=== PATIENT | female | born 1955 | race Hispanic/Latino ===

== ENCOUNTER 2019-04-06 18:43 | Emergency (ER) | payer SELFPAY ==
[~2019-04-06] VITALS: Ht 154.9 cm; Wt 64.4 kg
[2019-04-06] MEDS ORDERED: CLONIDINE HCL 0.2 MG TAB PO ONE (19:45)
[2019-04-06] MEDS ORDERED: CLONIDINE HCL 0.2 MG TAB ONE (20:08)
--- NOTE | 2019-04-06 20:11 | Diagnostic Imaging Report ---
Exams: Head, maxillofacial and cervical spine CTs without IV contrast History: Trauma, fall Comparison studies:None Technique: Axial images were obtained from the brain, face and cervical spine. Coronal and sagittal reconstructions obtained from the axial data. Dose modulation, iterative reconstruction, and/or weight based adjustment of the mA/kV was utilized to reduce the radiation dose to as low as reasonably achievable. Intravenous contrast: None Findings: Head CT: Scalp: Last inferior frontal-supraorbital soft tissue hematoma and abrasion extend to the preseptal periorbital soft tissues. No retained hyperdense foreign body. Bones: No calvarial fracture. No blastic or lytic lesion. Brain sulci: Appropriate for age. Ventricles: Normal in size and configuration. No hydrocephalus. Parenchyma: A subtle hypodensity in the right frontal hypodense R subcortical white matter is nonspecific but may be chronic microvascular ischemic changes. Sellar/suprasellar region: No abnormalities Craniocervical junction: The foramen magnum is patent. No Chiari one malformation. Maxillofacial CT: Soft tissues: Left supraorbital and preseptal periorbital soft tissue hematoma and abrasion. No retained hyperdense foreign body. Small focal gas beneath a left dilated otherwise, no subcutaneous emphysema. Mild edema extends inferiorly into the regional left perimandibular, premaxillary and prezygomatic soft tissues. Mild right periorbital soft tissue swelling. Bones: Mildly comminuted and depressed left lamina appreciable (medial orbital wall) fracture. Orbits: Globes and lenses appear grossly intact. No retrobulbar hematoma or extraocular muscle herniation. Paranasal sinuses: Small hemorrhage and focal herniation of left extra coronal fat the left lamina appreciable defect. Mild mucosal thickening in the right maxillary sinus, left sphenoid sinus and partially opacified posterior right ethmoid air cell. Remaining sinuses are clear. Dentition: Dental caries with tooth #18 periapical lucency. Cervical spine CT: Fractures: None. Soft tissue injuries: No gross acute abnormalities. Atlantoaxial articulation: Intact. Alignment: Normal lordosis. No subluxations. Cervicomedullary junction: No abnormalities. Patent foramen magnum. Vertebrae: No fractures, infection or neoplasm. Degenerative changes: Disc degeneration, mild at C3-C4, moderate from C4 to C7 and mild at C7-T1. Disc osteophyte complexes from C4 to C7 indent the thecal sac and result in only mild canal stenosis. Multilevel facet arthrosis with fused facets on the left at C2-C3 and on the right at C3-C4. Multilevel uncovertebral and facet arthrosis result in multilevel foraminal stenosis which is mild right at C3-C4, mild bilaterally at C4-C5, mild bilaterally at C5-C6 and mild to moderate left and mild right at C6-C7. IMPRESSION: Head CT: 1. Left supraorbital/periorbital soft tissue hematoma with associated acute left lamina appreciable fracture. No retained hyperdense foreign body. 2. No acute intracranial abnormalities. 3. Mild chronic microvascular ischemic changes. Facial CT: 1. Left supraorbital/periorbital soft tissue hematoma with superimposed mild left facial and right periorbital soft tissue swelling. No retained hyperdense foreign body. 2. Acute minimally displaced left lamina papyracea fracture. No associated extraocular muscle herniation, retrobulbar hematoma or gross evidence of globe injury. Cervical spine CT: 1. No cervical spine fracture or subluxation. 2. Multilevel degenerative changes as described. 3. Ligament, spinal cord and or vascular abnormalities cannot be excluded on the basis of this examination. Signed by: Dr. Thaddeus Coleman M.D. on 04/06/2019 8:08 PM
[2019-04-06 21:56] VITALS: BP 119/70
--- OUTSIDE RECORDS SUMMARY | 2019-04-14 11:32 | XMS REPORT ---
Author Author [facility] Address Unknown Phone Unavailable Care Team Providers Care Refrigeration Person Name Role Phone NAINA SAÚL Unavailable Unavailable Problems This patient has no known problems. Allergies, Adverse Reactions, Alerts This patient has no known allergies or adverse reactions. Medications This patient has no known medications. Results Test Description Test Time Test Comments Text Results Atomic Results Result Comments CT MAXIO FAC/PARANAS WO 2019-04-06 19:39:00 [facility] [address] [address] Patient Name: AFUA REA MR #: [id number] : 1955 Age/Sex: 63/F Req #: [id number] Adm Physician: Ordered by: SAÚL CHEW DO Report #: [id number] Location: ER Room/Bed: Procedure: [id number] CT/CT MAXIO FAC/PARANAS WO Exam Date: 04/06/19 Exam Time: 1900 REPORT STATUS: Signed Exams: Head, maxillofacial and cervical spine CTs with out IV contrast History: Trauma, fall Comparison studies:None Technique: Axial images were obtained from the brain, face and cervical spine. Coronal and sagittal reconstructions obtained from the axial data. Dose modulation, iterative reconstruction, and/or weight based adjustment of the mA/kV was utilized to reduce the radiation dose to as low as reasonably achievable. Intravenous contrast: None Findings: Head CT: Scalp: Last inferior frontal-supraorbital soft tissue hematoma and abrasion extend to the preseptal periorbital soft tissues. No retained hyperdense foreign body. Bones: No calvarial fracture. No blastic or lytic lesion. Brain sulci: Appropriate for age. Ventricles: Normal in size and configuration. No hydrocephalus. Parenchyma: A subtle hypodensity in the right frontal hypodense R subcortical white matter is nonspecific but may be chronic microvascular ischemic changes. Sellar/suprasellar region: No abnormalities Craniocervical junction: The foramen magnum is patent. No Chiari one malformation. Maxillofacial CT: Soft tissues: Left supraorbital and preseptal periorbital soft tissue hematoma and abrasion. No retained hyperdense foreign body. Small focal gas beneath a left dilated otherwise, no subcutaneous emphysema. Mild edema extends inferiorly into the regional left perimandibular, premaxillary and prezygomatic soft tissues. Mild right periorbital soft tissue swelling. Bones: Mildly comminuted and depressed left lamina appreciable (medial orbital wall) fracture. Orbits: Globes and lenses appear grossly intact. No retrobulbar hematoma or extraocular muscle herniation. Paranasal sinuses: Small hemorrhage and focal herniation of left extra coronal fat the left lamina appreciable defect. Mild mucosal thickening in the right maxillary sinus, left sphenoid sinus and partially opacified posterior right ethmoid air cell. Remaining sinuses are clear. Dentition: Dental caries with tooth #18 periapical lucency. Cervical spine CT: Fractures: None. Soft tissue injuries: No gross acute abnormalities. Atlantoaxial articulation: Intact. Alignment: Normal lordosis. No subluxations. Cervicomedullary junction: No abnormalities. Patent foramen magnum. Vertebrae: No fractures, infection or neoplasm. Degenerative changes: Disc degeneration, mild at C3-C4, moderate from C4 to C7 and mild at C7-T1. Disc osteophyte complexes from C4 to C7 indent the thecal sac and result in only mild canal stenosis. Multilevel facet arthrosis with fused facets on the left at C2-C3 and on the right at C3-C4. Multilevel uncovertebral and facet arthrosis result in multilevel foraminal stenosis which is mild right at C3-C4, mild bilaterally at C4-C5, mild bilaterally at C5-C6 and mild to moderate left and mild right at C6-C7. IMPRESSION: Head CT: 1. Left supraorbital/periorbital soft tissue hematoma with associated acute left lamina appreciable fracture. No retained hyperdense foreign body. 2. No acute intracranial abnormalities. 3. Mild chronic microvascular ischemic changes. Facial CT: 1. Left supraor bital/periorbital soft tissue hematoma with superimposed mild left facial and right periorbital soft tissue swelling. No retained hyperdense foreign body. 2. Acute minimally displaced left lamina papyracea fracture. No associated extraocular muscle herniation, retrobulbar hematoma or gross evidence of globe injury. Cervical spine CT: 1. No cervical spine fracture or subluxation. 2. Multilevel degenerative changes as described. 3. Ligament, spinal cord and or vascular abnormalities cannot be excluded on the basis of this examination. Signed by: Dr. Varinder Coleman M.D. on 04/06/2019 8:08 PM Dictated By: VARINDER COLEMAN MD 07 Transcribed By: MEL on 04/06/192007 COPY TO: SAÚL CHEW DO CT CERVICAL SPINE WO 2019-04-06 19:39:00 [address] [address] Patient Name: AFUA REA MR #: [id number] : 1955 Age/Sex: 63/F Req #: [id number] Adm Physician: Ordered by: SAÚL CHEW DO Report #: [id number] Location: ER Room/Bed: Procedure: [id number] CT/CT CERVICAL SPINE WO Exam Date: 04/06/19 Exam Time: 1900 REPORT STATUS: Signed Exams: Head, maxillofacial and cervical spine CTs without IV contrast History: Trauma, fall Comparison studies:None Technique: Axial images were obtained from the brain, face and cervical spine. Coronal and sagittal reconstructions obtained from the axial data. Dose modulation, iterative reconstruction, and/or weight based adjustment of the mA/kV was utilized to reduce the radiation dose to as low as reasonably achievable. Intravenous contrast: None Findings: Head CT: Scalp: Last inferior frontal-supraorbital soft tissue hematoma and abrasion extend to the preseptal periorbital soft tissues. No retained hyperdense fo reign body. Bones: No calvarial fracture. No blastic or lytic lesion. Brain sulci: Appropriate for age. Ventricles: Normal in size and configuration. No hydrocephalus. Parenchyma: A subtle hypodensity in the right frontal hypodense R subcortical white matter is nonspecific but may be chronic microvascular ischemic changes. Sellar/suprasellar region: No abnormalities Craniocervical junction: The foramen magnum is patent. No Chiari one malformation. Maxillofacial CT: Soft tissues: Left supraorbital and preseptal periorbital soft tissue hematoma and abrasion. No retained hyperdense foreign body. Small focal gas beneath a left dilated otherwise, no subcutaneous emphysema. Mild edema extends inferiorly into the regional left perimandibular, premaxillary and prezygomatic soft tissues. Mild right periorbital soft tissue swelling. Bones: Mildly comminuted and depressed left lamina appreciable (medial orbital wall) fracture. Orbits: Globes and lenses appear grossly intact. No retrobulbar hematoma or extraocular muscle herniation. Paranasal sinuses: Small hemorrhage and focal herniation of left extra coronal fat the left lamina appreciable defect. Mild mucosal thickening in the right maxillary sinus, left sphenoid sinus and partially opacified posterior right ethmoid air cell. Remaining sinuses are clear. Dentition: Dental caries with tooth #18 periapical lucency. Cervical spine CT: Fractures: None. Soft tissue injuries: No gross acute abnormalities. Atlantoaxial articulation: Intact. Alignment: Normal lordosis. No subluxations. Cervicomedullary junction: No abnormalities. Patent foramen magnum. Vertebrae: No fractures, infection or neoplasm. Degenerative changes: Disc degeneration, mild at C3-C4, moderate from C4 to C7 and mild at C7-T1. Disc osteophyte complexes from C4 to C7 indent the thecal sac and result in only mild canal stenosis. Multilevel facet arthrosis with fused facets on the left at C2-C3 and on the right at C3-C4. Multilevel uncovertebral and facet arthrosis result in multilevel foraminal stenosis which is mild right at C3-C4, mild bilaterally at C4-C5, mild bilaterally at C5-C6 and mild to moderate left and mild right at C6-C7. IMPRESSION: Head CT: 1. Left supraorbital/periorbital soft tissue hematoma with associated acute left lamina appreciable fracture. No retained hyperdense foreign body. 2. No acute intracranial abnormalities. 3. Mild chronic microvascular ischemic changes. Facial CT: 1. Left supraorbit al/periorbital soft tissue hematoma with superimposed mild left facial and right periorbital soft tissue swelling. No retained hyperdense foreign body. 2. Acute minimally displaced left lamina papyracea fracture. No associated extraocular muscle herniation, retrobulbar hematoma or gross evidence of globe injury. Cervical spine CT: 1. No cervical spine fracture or subluxation. 2. Multilevel degenerative changes as described. 3. Ligament, spinal cord and or vascular abnormalities cannot be excluded on the basis of this examination. Signed by: Dr. Varinder Coleman M.D. on 04/06/2019 8:08 PM Dictated By: VARINDER COLEMAN MD 07 Transcribed By: MEL on 04/06/192007 COPY TO: SAÚL CHEW DO CT BRAIN WO 2019-04-06 19:39:00 [address] [place] [address] Patient Name: AFUA REA MR #: [id number] : 1955 Age/Sex: 63/F Req #: [id number] Adm Physician: Ordered by: SAÚL CHEW DO Report #: [id number] Location: ER Room/Bed: Procedure: [id number] CT/CT BRAIN WO Exam Date: 04/06/19 Exam Time: 1900 REPORT STATUS: Signed Exams: Head, maxillofacial and cervical spine CTs without IV contrast History: Trauma, fall Comparison studies:None Technique: Axial images were obtained from the brain, face and cervical spine. Coronal and sagittal reconstructions obtained from the axial data. Dose modulation, iterative reconstruction, and/or weight based adjustment of the mA/kV was utilized to reduce the radiation dose to as low as reasonably achievable. Intravenous contrast: None Findings: Head CT: Scalp: Last inferior frontal-supraorbital soft tissue hematoma and abrasion extend to the preseptal periorbital soft tissues. No retained hyperdense foreign body. Bones: No calvarial fracture. No blastic or lytic lesion. Brain sulci: Appropriate for age. Ventricles: Normal in size and configuration. No hydrocephalus. Parenchyma: A subtle hypodensity in the right frontal hypodense R subcortical white matter is nonspecific but may be chronic microvascular ischemic changes. Sellar/suprasellar region: No abnormalities Craniocervical junction: The foramen magnum is patent. No Chiari one malformation. Maxillofacial CT: Soft tissues: Left supraorbital and preseptal periorbital soft tissue hematoma and abrasion. No retained hyperdense foreign body. Small focal gas beneath a left dilated otherwise, no subcutaneous emphysema. Mild edema extends inferiorly into the regional left perimandibular, premaxillary and prezygomatic soft tissues. Mild right periorbital soft tissue swelling. Bones: Mildly comminuted and depressed left lamina appreciable (medial orbital wall) fracture. Orbits: Globes and lenses appear grossly intact. No retrobulbar hematoma or extraocular muscle herniation. Paranasal sinuses: Small hemorrhage and focal herniation of left extra coronal fat the left lamina appreciable defect. Mild mucosal thickening in the right maxillary sinus, left sphenoid sinus and partially opacified posterior right ethmoid air cell. Remaining sinuses are clear. Dentition: Dental caries with tooth #18 periapical lucency. Cervical spine CT: Fractures: None. Soft tissue injuries: No gross acute abnormalities. Atlantoaxial articulation: Intact. Alignment: Normal lordosis. No subluxations. Cervicomedullary junction: No abnormalities. Patent foramen magnum. Vertebrae: No fractures, infection or neoplasm. Degenerative changes: Disc degeneration, mild at C3-C4, moderate from C4 to C7 and mild at C7-T1. Disc osteophyte complexes from C4 to C7 indent the thecal sac and result in only mild canal stenosis. Multilevel facet arthrosis with fused facets on the left at C2-C3 and on the right at C3-C4. Multilevel uncovertebral and facet arthrosis result in multilevel foraminal stenosis which is mild right at C3-C4, mild bilaterally at C4-C5, mild bilaterally at C5-C6 and mild to moderate left and mild right at C6-C7. IMPRESSION: Head CT: 1. Left supraorbital/periorbital soft tissue hematoma with associated acute left lamina appreciable fracture. No retained hyperdense foreign body. 2. No acute intracranial abnormalities. 3. Mild chronic microvascular ischemic changes. Facial CT: 1. Left supraorbital/perior bital soft tissue hematoma with superimposed mild left facial and right periorbital soft tissue swelling. No retained hyperdense foreign body. 2. Acute minimally displaced left lamina papyracea fracture. No associated extraocular muscle herniation, retrobulbar hematoma or gross evidence of globe injury. Cervical spine CT: 1. No cervical spine fracture or subluxation. 2. Multilevel degenerative changes as described. 3. Ligament, spinal cord and or vascular abnormalities cannot be excluded on the basis of this examination. Signed by: Dr. Varinder Coleman M.D. on 04/06/2019 8:08 PM Dictated By: VARINDER COLEMAN MD 07 Transcribed By: MEL on 04/06/192007 COPY TO: SAÚL CHEW DO
== END 2019-04-06 22:17 | disposition home or self-care (01) ==
LOC: ER 18:43
DX: S00.83XA Contusion of other part of head, initial encounter (principal); S02.80XA Fracture of other specified skull and facial bones, unspecified side, initial encounter for closed fracture; S00.12XA Contusion of left eyelid and periocular area, initial encounter; S00.11XA Contusion of right eyelid and periocular area, initial encounter; W01.0XXA Fall on same level from slipping, tripping and stumbling without subsequent striking against object, initial encounter; Y92.008 Other place in unspecified non-institutional (private) residence as the place of occurrence of the external cause; I10 Essential (primary) hypertension
CPT/HCPCS: 70450; 70486; 72125; 99283

== ENCOUNTER 2022-05-09 16:09 | Emergency (ER) | payer MEDICARE ==
[~2022-05-09] VITALS: Ht 154.9 cm; Wt 64.4 kg
[2022-05-09] MEDS ORDERED: SODIUM CHLORIDE 0.9% 1000ML 1,000 ML IV STA (16:19)
[2022-05-09] MEDS ORDERED: DICYCLOMINE HCL 20 MG/2 ML VIAL IM ONE (16:30)
[2022-05-09] MEDS ORDERED: ONDANSETRON HCL INJ 2MG/ML 2ML 2 MG/ML VIAL IV PRN (16:30)
[2022-05-09 16:43] LABS: BASOPHILS % 0.6 % (0.0-1.0); EOSINOPHILS % 0.3 % (0.0-6.0); HEMOGLOBIN 12.1 g/dL (12.0-16.0); LYMPHOCYTES # (AUTO) 1.4 (1.0-3.2); LYMPHOCYTES % 39.5 % (18.0-39.1); MEAN CORPUSCULAR HEMOGLOBIN 25.6 pg (28-32); MEAN CORPUSCULAR HGB CONC 30.3 g/dL (31-35); MEAN CORPUSCULAR VOLUME 84.6 fL (81-99); MONOCYTES # (AUTO) 0.3 (0.2-0.8); MONOCYTES % 8.4 % (4.4-11.3); NEUTROPHILS # (AUTO) 1.8 (2.1-6.9); NEUTROPHILS % 50.9 % (38.7-80.0); PLATELET COUNT 73 x10e3/uL (140-360); RED BLOOD COUNT 4.73 x10e6/uL (3.6-5.1); RED CELL DISTRIBUTION WIDTH 18.2 % (11.7-14.4)
[2022-05-09 16:47] LABS: CLARITY,URINE HAZY (CLEAR); COLOR,URINE YELLOW (YELLOW)
[2022-05-09 16:48] LABS: KETONES,URINE NEGATIVE (NEGATIVE); LEUKOCYTE ESTERASE ,URINE TRACE (NEGATIVE); NITRITE,URINE NEGATIVE (NEGATIVE); PROTEIN,URINE DIPSTICK NEGATIVE (NEGATIVE); URINE UROBILINOGEN 0.2 mg/dL (0.2 - 1)
[2022-05-09 16:49] LABS: BACTERIA,URINE FEW /HPF; EPITHELIAL CELLS,URINE FEW /LPF; RBC,URINE 0-5 /HPF (0-5); WBC,URINE (MAN) 0-5 /HPF (0-5)
[2022-05-09] MEDS ORDERED: KETOROLAC TROMETHAMINE 30 MG/ML VIAL IV ONE (17:00)
[2022-05-09 17:02] LABS: ALBUMIN 3.8 g/dL (3.5-5.0); ALBUMIN/GLOBULIN RATIO 0.8 (0.8-2.0); ANION GAP 15.5 mmol/L (8-16); CREATININE, SERUM 0.68 mg/dL (0.57-1.11); POTASSIUM 3.5 mmol/L (3.5-5.1)
[2022-05-09] MEDS ORDERED: IOPAMIDOL 370 MG/ML 100 ML INFUS..BTL INJ ONE (17:34)
[2022-05-09] MEDS ORDERED: AMLODIPINE BESY10 MG PO (17:35)
[2022-05-09 17:44] LABS: PLATELET ESTIMATE SLIGHTLY DECREASED; PLATELET MORPHOLOGY COMMENT NORMAL
[2022-05-09] MEDS ORDERED: NAPROXEN250 MG PO (17:54)
[2022-05-10] MEDS ORDERED: AMLODIPINE BESYLATE 10 MG TAB PO SCH (09:00)
== END 2022-05-09 18:33 | disposition home or self-care (01) ==
LOC: ER 16:12
DX: R10.33 Periumbilical pain (principal); I10 Essential (primary) hypertension; Z87.42 Personal history of other diseases of the female genital tract
CPT/HCPCS: 36415; 74177; 80053; 81001; 83690; 84484; 85025; 99284; J0500; J1885; J2405; J7030; Q9967

== ENCOUNTER 2022-10-18 14:35 | Emergency (ER) | payer MEDICARE, OTHER ==
[~2022-10-18] VITALS: Ht 154.9 cm; Wt 64.4 kg
[2022-10-18 14:35] VITALS: O2SAT 99
[~2022-10-18 14:35] MED LIST: AMLODIPINE BESY10 MG PO; NAPROXEN250 MG PO
[2022-10-18] MEDS ORDERED: AMOX TR-K CLV1 EAC2 PO (14:39)
[2022-10-18] MEDS ORDERED: NAPROXEN250 MG PO (14:39)
== END 2022-10-18 14:45 | disposition home or self-care (01) ==
LOC: ER 14:39
DX: K08.89 Other specified disorders of teeth and supporting structures (principal); I10 Essential (primary) hypertension; Z87.42 Personal history of other diseases of the female genital tract
CPT/HCPCS: 99282